=== PATIENT | male | born 1970 | race Caucasian/White ===

== ENCOUNTER 2024-05-29 10:26 | Day surgery (SDC) | payer MEDICAID, SELFPAY ==
[2024-05-29] VITALS (11 sets, daily range): BP systolic 109–156; BP diastolic 75–101; PULSE 86–110; RESP 14–20; TEMP 36.1–37.1; O2SAT 83–95; BMI 37.3
--- NOTE | 2024-05-29 10:36 | PCM.HP.BLA ---
History and Physical Date of Admission: 05/29/24 The patient is examined and there are no changes from the H&P dated 05/02/2024. He presents with a neoplasm on the right lateral nose. He presents for excision with submission for pathologic evaluation. He is aware the potential need for further surgery depending on the resulting pathology. He is marked in the preop holding area prior to surgery and informed consent is obtained. Assessment & Plan Assessment/Plan (1) Neoplasm of uncertain behavior of skin of face: PLAN: Plan For excision neoplasm right face
[2024-05-29] MEDS: 0.9% Normal Saline (1000mL) 1,000 ML 15 ML IV (10:59)
--- NOTE | 2024-05-29 11:07 | PCM.PRE.AN2 ---
ASA Classification* ASA Classification ASA Classification: 3 Assessment & Plan Anesthesia* Anesthesia Assessment Anesthesia Assessment: Discussed sedation and/or anesthesia options, risks, benefits, and alternatives with patient/parents/legal guardian/POA. Questions invited. The patient/parents/legal guardian/POA seems to understand and agrees to proceed with anesthesia plan. Reviewed the physical assessment, medical history, allergy history and patient home medications list prior to surgery/procedure/anesthetic and documented any changes. Performed airway and anesthesia risk assessments. Anesthesia Type Anesthesia Type: General History Source History Obtained from:: Patient and Chart Anesthesia Focused Assessment* Temperature: 98.8 F Pulse Rate: 110 Blood Pressure: 146/88 Respiratory Rate: 18 Pulse Ox: 95 Airway Assessment Mouth opens: >3 cm Mallampati Score: III Teeth Condition: Loose (multiple missing, loose lower front) and Missing (multiple missin) Neck Range of motion (ROM): Full ROM Focused Labs Anesthesia Preop lab: CBC CHEMISTRY COAG Pre-Assessment Diagnosis/Proposed Procedure Planned Operative Procedure(s): EXCISION LESION Anesthesia History Anesthesia History - software architect: Anesthesia History - software architect Hx Hospitalization No 05/14/24 08:17 Any Problems With Anesthesia No 05/14/24 08:17 Cholinesterase deficiency No 05/14/24 08:17 You/Your Family Experience No 05/14/24 08:17 fever (hyperthermia) with Relationship Recent Exposure to Contagious No 05/29/24 10:54 Disease Does patient have nerve No 05/14/24 08:17 stimulator Patient instructed to have device shut off --Does patient have Pacemaker No 05/29/24 10:54 or ICD? When Was Last Pacemaker Check QUESTION #4 FULL TEXT: You/Your Family Experience fever (hyperthermia) with Anesthesia Any additional information?: No Last Oral Intake Last Oral intake: Last Oral Intake NPO since 21:00 05/29/24 10:54 Meds taken in AM with sips of Yes 05/29/24 10:54 water? Meds patient instructed to see med rec 05/29/24 10:54 take am of surgery Any additional information?: No PONV PONV - software architect: PONV - software architect Female No 05/14/24 08:17 HX of Motion Sickness No 05/14/24 08:17 HX of N/V After Surgery No 05/14/24 08:17 Non-Smoker No 05/14/24 08:17 Duration of Surgery greater Yes 05/14/24 08:17 than 60 minutes Number of Risk Factors 1 05/14/24 08:17 PONV Score Low Risk 05/14/24 08:17 Any additional information?: No Height & Weight Height & Weight: Anesthesia: Height & Weight Height 5 ft 5 in 05/29/24 10:54 Weight: 101.6 kg 05/29/24 10:54 Body Mass Index (BMI) 37.3 05/29/24 10:54 Respiratory Assessment Respiratory Assessment - software architect: Respiratory Tract Infection Hx - software architect Hx Respiratory Tract Infection No 05/14/24 08:17 Any additional information?: No STOP Sleep Apnea STOP Sleep Apnea - software architect: STOP Sleep Apnea - software architect Hx Hypertension No 05/14/24 08:17 Hx Sleep Apnea No 05/14/24 08:17 CPAP BIPAP Do you snore loudly (louder No 05/14/24 08:17 than talking or can be heard Do you often feel tired/ No 05/14/24 08:17 fatigued/ sleepy during daytime? Has anyone observed you stop No 05/14/24 08:17 breathing during sleep? STOP Results Negative 05/14/24 08:17 QUESTION #5 FULL TEXT : Do you snore loudly (louder than talking or can be heard through closed doors)? Any additional information?: No Tobacco Use History Tobacco Use History - software architect: Tobacco Use History - software architect Tobacco Use Smoking Status Current every day smoker 05/14/24 08:17 Hx Tobacco Use Yes 05/14/24 08:17 Years Smoking Packs Smoked per Day Smoking Cessation Date was within the last 15 years Hx Smoking Cessation Date Hx Smoking Cessation Counseling Any additional information?: No Hematologic Medial History Hematologic Hx - software architect: Hematologic Medical Hx - clinical operations specialist Hx of Blood Transfusion No 05/14/24 08:17 Hx of Transfusion in last 3 No 05/14/24 08:17 Months Date of Last Transfusion (if within last 3 months) Ever experience any problems No 05/14/24 08:17 with transfusion(s)? Specify any problems Hx of Preganancy in last 3 N/A 05/14/24 08:17 Months Nurse Filling Out Transfusion VCHRISTIN 05/14/24 08:17 & Questions: Date: 05/14/24 05/14/24 08:17 Time: 08:19 05/14/24 08:17 Patient unable to answer at this time (ie. confused, unrespo Any additional information?: No /Reproduction History /Reproductive History - software architect: /Reproductive Hx- software architect Hx Now Gestational Age (in weeks): EDC: Hx Hx Para Hx Section SAB Any additional information?: No Active Medications Active Medications: Current Medications Generic Name Dose Route Start Last Admin Trade Name Freq PRN Reason Stop Dose Admin Sodium Chloride 1,000 mls @ 15 mls/hr 05/29/24 10:35 05/29/24 10:59 IV 15 mls/hr .Q48H MOY Administration PFSH Medical History Wears glasses Marijuana use Fatty liver Injury of head and neck Dietary restriction Smoker Liver disease COPD (chronic obstructive pulmonary disease) High cholesterol High calcium levels Diabetes Asthma Alcohol abuse Home Medications ?Medication ?Instructions ?Recorded ?Last Taken ?Type glipizide 10 mg tablet 10 mg PO BID 05/13/24 Unknown History metformin 1,000 mg tablet 1,000 mg PO BID 05/13/24 Unknown History rosuvastatin 20 mg tablet 20 mg PO QHS 05/13/24 Unknown History umeclidinium 62.5 mcg-vilanterol 1 inh inhalation QDAY 05/13/24 Unknown History 25 mcg/actuation powdr for inhalation (Anoro Ellipta) varenicline tartrate 0.5 mg (11)-1 1 tab PO BID 05/13/24 05/29/24 09:15 History mg (42) tablets in a dose pack albuterol sulfate 90 mcg/actuation 1 - 2 puff inhalation Q4H PRN 05/14/24 Unknown History aerosol inhaler wheezing Allergy/AdvReac Type Severity Reaction Status Date / Time No Known Allergies Allergy Verified 05/29/24 10:52 Family History no significant family his no significant family history (no known ) Surgical History no surgical history no surgical history Social History (Updated 05/13/24 @ 13:35 by Kayleen Verde) Smoking Status: Current every day smoker tobacco type: cigarettes how long ago did patient quit smoking: trying to quit on chantix alcohol intake: former details: quit 2 years ago substance use type: marijuana additional social history: pt denies vaping,denies edibles, denies aspirin and ibuprofen Uses marijuana last used 1 week ago Review of Systems (Anesthesia) ROS Narrative System reviewed and no additional complaints, except as documented.
[2024-05-29 11:19] LABS: Bedside Glucose 157 mg/dL (74-106)
[2024-05-29] MEDS: Cefazolin 2 GM in Syringe IV (11:20)
[2024-05-29] MEDS: Povidone Iodine 30 ML Opthalmic Sol 1 DRP (11:25)
[2024-05-29] MEDS: Lidocaine 1% /Epi 1:100 (20ml) 20 ML Vial (12:00)
--- NOTE | 2024-05-29 12:13 | EX.PCM.DISCH ---
Discharge Instructions Dressing / Incision Additional Dressing/Incision Instructions:: Keep the tape on your right cheek dry??do not remove until seen in the office. Take the oral antibiotics (cephalexin) 2 times a day until finished. Keep your back elevated (recliner position) for the next 4 nights to reduce bruising and swelling. Follow Up Care Please Follow Up With: Hannah Reyna MD When: 1 to 2 weeks Test Results: Test results from this visit will be discussed in further detail at your follow-up appointment, if applicable. Discharge Plan Admission Attending Provider: Hannah Reyna Primary Care Provider: Beti Cain NP Instructions Print Language: Maltese Discharge Orders/Prescriptions Prescriptions: New cephalexin 500 mg capsule 500 mg PO BID 7 Days Qty: 14 0RF No Action varenicline tartrate 0.5 mg (11)- 1 mg (42) tablets,dose pack 1 tab PO BID rosuvastatin 20 mg tablet 20 mg PO QHS glipizide 10 mg tablet 10 mg PO BID metformin 1,000 mg tablet 1,000 mg PO BID Anoro Ellipta 62.5-25 mcg/actuation blister with device 1 inh inhalation QDAY albuterol sulfate 90 mcg/actuation HFA aerosol inhaler 1 - 2 puff inhalation Q4H PRN (Reason: wheezing) Referrals / Follow Up: Beti Cain NP, PROFESSOR OF MATHEMATICS-C [Primary Care Provider] - Disposition Disposition (needs filled in before D/C Order can be placed): Home, Self Care
--- NOTE | 2024-05-29 12:16 | PCM.OPRPT ---
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 He presents for excision of the neoplasm with submission for pathologic evaluation. He is marked in the preop holding area prior to surgery and informed consent is obtained. The patient is brought to the operating room and placed under general anesthesia in the supine position. The right face is prepped and draped in the usual sterile fashion. 1% Xylocaine with epinephrine is injected to facilitate hemostasis. The site is then elliptically excised and passed off the operative field to be sent to pathology. Hemostasis is controlled with cautery. During the excision, a clear fluid is noted to emanate from the mass. The incision has been closed with Monocryl suture in the subcutaneous tissue and dermis. Skin edges are approximated with a running subcuticular Monocryl suture. Further reinforcement the closure is done with interrupted Prolene suture. Dermabond and Steri-Strips were placed on the site. He tolerated the procedure well was taken to the recovery area in an awake and stable condition. Needle and sponge counts are correct. Surgical Findings: As above Complications Complications: No Admit VTE Documentation VTE Mechan Device Prophylaxis: SCD's
--- NOTE | 2024-05-29 12:27 | PCM.POST.ANE ---
Anesthesia: Postop Eval I Current Vital Signs Temperature: 97 F Pulse Rate: 95 Blood Pressure: 151/101 Respiratory Rate: 16 Pulse Ox: 92 Oxygen Delivery Method: Nasal Cannula Oxygen Flow Rate (L/min): 3 Assessment Airway patent: Yes Spontaneous unlabored respirations: Yes Mental status: Awake and Calm nausea: No Vomiting: No Anesthesia Complication: No Fluid Hydration Crystalloid volume administer (ml): 800 Total IV fluid infused: 800 Progress Note Anesthesia document: Postop Eval 1 completed: Yes
--- NOTE | 2024-05-29 12:55 | TISS_PTH ---
PATIENT: JAVIER MCCORD Jr. [place] [facility] [id number] AGE/SX: 53/M ROOM: RE05/29/[address]: Dr. Hannah Reyna MD : [id number] BED: DIS: 05/29/2024 SPEC #: [id number] RECD: 05/29/24 12:55 STATUS: JENNIFER GRADY #: [id number] MEAGAN: 05/29/24 12:[address]: Hannah Reyna DEPT: SURGICAL PATHOLOGY RECD BY: Fermin Perdue ENTERED: 05/29/24 14:03 SP TYPE: Tissue Bx SARANYA DR: Beti Cain, MIXER DIAMOND POWDER-William Tissues: A - Skin of face, NOS Procedures: Surgery Specimen Level IV HEADER OPERATION: Excision neoplasm right face (2.5cm) with intermediate closure PRE-OP DIAGNOSIS: Neoplasm of uncertain behavior of skin of face TISSUE SUBMITTED: A- Right face neoplasm MICROSCOPIC DIAGNOSIS A. Skin, right face, neoplasm, excision: - Basal cell carcinoma, nodular type, margins free. MICROSCOPIC DESCRIPTION Slides are reviewed. GROSS DESCRIPTION A. Received in formalin in a container labeled with the patient's name, date of , and neoplasm R face is an unoriented and elliptical skin excision measuring at 1.8 x 1.3 cm with a depth up to 0.6 cm. The curtis-swenson epidermis is notable for a 1.7 x 1.4 x 1.1 cm swenson-pink bulla situated 0.1 cm from the peripheral margin. The deep margin is inked green and serial sections reveal that the bulla is multiloculated and filled with thick, yellow-tinged, semitranslucent mucus. The linings appear smooth and glistening, and it appears confined to the epidermis. Submitted entirely as follows:A1. Tips, en faceA2-3. Remainder specimen [facility] 05-29-2024 CPT:[id number]
--- NOTE | 2024-05-29 14:01 | POSTOPAN2_ITS ---
Anesthesia Postop Eval I Sum Postop Eval Completion status Anesthesia document: Postop Eval 1 completed: Yes Anesthesia Postop Eval I Summary Anesthesia Postop Eval I Summary: Anesthesia Postop Eval I: Assessment Summary Airway patent Yes 05/29/24 12:27 SAFETY [email or web address] Spontaneous unlabored Yes 05/29/24 12:27 SAFETY TECH.MDOT respirations Mental status Awake,Calm 05/29/24 12:27 SAFETY TECH.MDOT nausea No 05/29/24 12:27 SAFETY TECH.MDOT Vomiting No 05/29/24 12:27 SAFETY TECH.MDOT Anesthesia Postop Eval I: Fluid Summary Crystalloid volume administer 800 05/29/24 12:27 SAFETY TECH.MDOT (ml) Colloids volume administered ( ml) Blood Product volume administered (ml) Total IV fluid infused 800 05/29/24 12:27 SAFETY [email or web address].MDOT Anesthesia Postop Eval I: Summary Notes Anesthesia Complication No 05/29/24 12:27 SAFETY TECH.MDOT Anesthesia Complication Comment: Post-operative progress note Anesthesia: Postop Eval II Evaluation Mental status: Awake and Calm Pain Level: 0 nausea: No Vomiting: No Complications Anesthesia Complication: No
--- NOTE | 2024-05-29 14:01 | PCM.POSTANE2 ---
Anesthesia Postop Eval I Sum Postop Eval Completion status Anesthesia document: Postop Eval 1 completed: Yes Anesthesia Postop Eval I Summary Anesthesia Postop Eval I Summary: Anesthesia Postop Eval I: Assessment Summary Airway patent Yes 05/29/24 12:27 TOP [email or web address] Spontaneous unlabored Yes 05/29/24 12:27 TOP [email or web address] respirations Mental status Awake,Calm 05/29/24 12:27 TOP [email or web address].MDOT nausea No 05/29/24 12:27 TOP [email or web address].MDOT Vomiting No 05/29/24 12:27 TOP [email or web address].MDOT Anesthesia Postop Eval I: Fluid Summary Crystalloid volume administer 800 05/29/24 12:27 TOP SCREW.MDOT (ml) Colloids volume administered ( ml) Blood Product volume administered (ml) Total IV fluid infused 800 05/29/24 12:27 TOP [email or web address] Anesthesia Postop Eval I: Summary Notes Anesthesia Complication No 05/29/24 12:27 TOP [email or web address] Anesthesia Complication Comment: Post-operative progress note Anesthesia: Postop Eval II Evaluation Mental status: Awake and Calm Pain Level: 0 nausea: No Vomiting: No Complications Anesthesia Complication: No
== END 2024-05-29 13:46 | disposition home or self-care (01) ==
LOC: SDC 10:27 → AC 10:29
PROVIDERS: PCP Nurse Practitioner Family; Referring Provider Plastic Surgery; Visit Provider Plastic Surgery
PROC: (CPT 11643; principal; 2024-05-29 12:45)
DX: C44.319 Basal cell carcinoma of skin of other parts of face (principal)
CPT/HCPCS: 11643; 12051; 82962; 88305; J2405